=== PATIENT | female | born 1995 | race American Indian/Alaskan Native ===

== ENCOUNTER 2018-07-03 06:33 | Emergency (ER) | payer SELFPAY ==
--- NOTE | 2018-07-03 07:08 | Emergency Department Report ---
HPI - General Chief Complaint: Dental/Oral Time Seen by Provider: 07/03/18 07:05 - HPI HPI: This is a 23-year-old female here complaining of tooth abscess lower tooth on both sides. She said she spoke with dentist in [place] but they would not see her until swelling went down. She is reporting pain 10 out of 10 achy and worse with hot and and no alleviating factors. Patient says she has taken Motrin, Ultram and many other [id number] medication without any relief. Last menstrual cycle was 06/21/2018. Denies any fever or chills. Denies any nasal congestion. Denies any cough, sore throat or chest pain. ED Past Medical Hx - Past Medical History Previous Medical History?: Yes Additional medical history: endometerosis - Surgical History Past Surgical History?: No - Family History Family history: hypertension - Social History Smoking Status: Current Every Day Smoker Substance Use Type: None - Medications Home Medications: Home Medications Medication Instructions Recorded Confirmed Last Taken Type Acetaminophen/Codeine [Tylenol 1 tab PO Q6H PRN #14 tab 07/03/18 Unknown Rx /Codeine # 3 tab] Clindamycin [Clindamycin CAP] 300 mg PO Q8H 10 Days #30 cap 07/03/18 Unknown Rx Ibuprofen [Motrin] 600 mg PO Q8H PRN #15 tablet 07/03/18 Unknown Rx ED Review of Systems ROS: Stated complaint: TOOTHACHE Other details as noted in HPI Constitutional: denies: chills, fever Eyes: denies: eye pain, eye discharge, vision change ENT: dental pain. denies: ear pain, throat pain, congestion Respiratory: other (bilateral mandible swelling, minimal). denies: cough, shortness of breath, SOB with exertion, SOB at rest, stridor, wheezing Cardiovascular: denies: chest pain, palpitations Gastrointestinal: denies: nausea, vomiting Musculoskeletal: denies: back pain, joint swelling, arthralgia, myalgia Skin: denies: rash, lesions Neurological: denies: headache, weakness, paresthesias Physical Exam - Physical Exam Vital Signs: Vital Signs 07/03/18 06:56 Temperature 99.4 F Pulse Rate 98 H Respiratory 16 Rate Blood Pressure 116/85 O2 Sat by Pulse 100 Oximetry General: This is a 23-year-old female well-nourished well-developed in no acute distress. Physical Exam: Head: Normocephalic atraumatic Ears:BIateral TM pearly wolff . Luis Manuel EAC with normal exam. No mastoid bone tenderness. Mouth: Moist, no pharyngeal erythema or exudate . Tongue is normal and oral airways patent. Uvula is midline. No abscess noted but noted dental tenderness around tooth #17, 18 and 32. Multiple caries to #17, 18, 19 and 20 noted without any pulp exposure. Lip is normal. Minor swelling to bilateral mandible Neck: Nontender to palpate, supple, normal range of motion. No adenopathy. No c- spine tenderness. Nose: Bilateral nasal mucosa normal exam maxillary and frontal sinuses non- tender to palpate. Eyes: Bilateral Sclerae and conjunctiva without injection. Bilateral pupils equal and reactive to light. Bilateral lids are normal. Normal accommodation.BEOMI Lungs: Clear to auscultate bilaterally, no rhonchi wheezes or rales. Normal work of breathing and no chest wall tenderness CV: S1, S2. Regular rate and rhythm negative murmur. Capillary refill is less than 3 seconds Abdomen: Nontender to palpation in all quadrants: No guarding or rebound tenderness. Positive bowel sounds in all quadrants Extremity: No clubbing, cyanosis or edema. +2 pulses in all extremities and no neurovascular compromise Skin: Clean dry and intact, no rashes or lesions ED Course Vital Signs 07/03/18 06:56 Temperature 99.4 F Pulse Rate 98 H Respiratory 16 Rate Blood Pressure 116/85 O2 Sat by Pulse 100 Oximetry - Reevaluation(s) Reevaluation #1: 07/03/18 08:06 given clindamycin 600 mg by mouth and Percocet 5/325 one tablet, Motrin 800 mg for oral cellulitis and pain. ED Medical Decision Making - Medical Decision Making This is a 23-year-old female here report that she is having in bilateral lower dental pain and swelling and she went with dentist in [place] now close to where she works and they wanted her to be an antibiotic and pain medication before they see her 1: Oral cellulitis-patient started on clindamycin 600 mg by mouth and will be sent home on clindamycin and referred to dentist 2: Dental caries/toothache: Percocet 5/325 mg 1 tablet and Motrin 800 mg by mouth which helped her pain. She will be sent home on pain medication I discussed the patient diagnosis and treatment plan she was given referral to multiple dental clinic in the community to include [facility]. Patient does have access to dental care so she says she will call and schedule an appointment today for treatment of underlying problems causing her toothache and cellulitis. She was given pain medication in emergency room and started on antibiotic and her pain is better. Patient stable and in no acute distress. Discharge home with her family in stable condition with prescription for clindamycin, Tylenol No. 3 and Motrin Critical care attestation.: If time is entered above; I have spent that time in minutes in the direct care of this critically ill patient, excluding procedure time. ED Disposition Clinical Impression: Oral cellulitis, Toothache, Dental caries Disposition: - TO HOME OR SELFCARE Is pt being admited?: No Does the pt Need Aspirin: No Condition: Stable Instructions: Dental Caries (ED), Toothache (ED), Dental Abscess (ED) Additional Instructions: Please follow up with dentist as discussed. See alternative dentist and discharge instruction paperwork if needed. Take Motrin for mild to moderate pain and please take this medication with food. Take Tylenol No. 3 for severe pain and please do not drive or operate heavy machinery while taking this medication. Take clindamycin as prescribed. Please see floss twice daily Gargle Listerine mouthwash twice daily Referrals: [facility] [Outside] - 2-[address] [facility] [Outside] - 2-3 Days Forms: Work/School Release Form(ED)
[2018-07-03] MEDS ORDERED: MOTRIN PO ONE (07:37)
[2018-07-03] MEDS ORDERED: PERCOCET 5/325 PO ONE (07:37)
[2018-07-03] MEDS ORDERED: CLEOCIN PO ONE (07:37)
[2018-07-03 08:24] VITALS: BP 114/81
== END 2018-07-03 08:23 | disposition home or self-care (01) ==
LOC: ED 06:33
DX: K12.2 Cellulitis and abscess of mouth (principal); K02.9 Dental caries, unspecified; F17.200 Nicotine dependence, unspecified, uncomplicated
CPT/HCPCS: 99282

== ENCOUNTER 2018-07-22 07:32 | Emergency (ER) | payer SELFPAY ==
[2018-07-22] MEDS ORDERED: TYLENOL #3 PO ONE (08:06)
[2018-07-22] MEDS ORDERED: CLEOCIN PO ONE (08:06)
--- NOTE | 2018-07-22 08:10 | Emergency Department Report ---
ED ENT HPI - General Chief complaint: Dental/Oral Stated complaint: TOOTH ACHE Time Seen by Provider: 07/22/18 08:00 Source: patient Mode of arrival: Ambulatory Limitations: No Limitations - History of Present Illness Initial comments: This is a 23-year-old female nontoxic, well nourished in appearance, no acute signs of distress presents to the ED with c/o of right and left lower toothache 1 month. Patient denies following up with a dentist. Patient stated that pain radiates from his job to his left side of head. Patient otherwise denies any head trauma. Patient describes toothache as aching level of 8 out of 10. Patient stated has some slight swelling to right lower mandible area. Patient denies any numbness, tingling, fever, chills, headache, stiff neck, abdominal pain, chest pain, shortness of breath. Patient denies any drug allergies or significant past medical history. MD complaint: tooth pain -: month(s) (1) Location: tooth # 1 - pain here 2 - pain here Severity: mild Severity scale (0 -10): 8 Quality: aching Consistency: constant Improves with: none Worsens with: none Context- Dental: history of dental caries, poor dental care Associated Symptoms: gum swelling, toothache. denies: fever, cough, pain with swallowing, sore throat, tinnitus, hearing loss, discharge from ear, rhinorrhea - Related Data Previous Rx's Medication Instructions Recorded Last Taken Type Acetaminophen/Codeine [Tylenol 1 tab PO Q6H PRN #14 tab 07/03/18 Unknown Rx /Codeine # 3 tab] Clindamycin [Clindamycin CAP] 300 mg PO Q8H 10 Days #30 cap 07/03/18 Unknown Rx Ibuprofen [Motrin] 600 mg PO Q8H PRN #15 tablet 07/03/18 Unknown Rx Acetaminophen/Codeine [Tylenol 1 tab PO Q6H PRN #12 tab 07/22/18 Unknown Rx /Codeine # 3 tab] Chlorhexidine Mouthwash [Peridex] 15 ml MM BID #1 bottle 07/22/18 Unknown Rx Clindamycin [Clindamycin CAP] 300 mg PO Q8H #21 cap 07/22/18 Unknown Rx Ibuprofen [Motrin] 600 mg PO Q8H PRN #20 tablet 07/22/18 Unknown Rx Allergies Allergy/AdvReac Type Severity Reaction Status Date / Time antidiarrhea Allergy Vomiting Uncoded 07/22/18 07:46 ED Dental HPI - General Chief complaint: Dental/Oral Stated complaint: TOOTH ACHE Time Seen by Provider: 07/22/18 08:00 Source: patient Mode of arrival: Ambulatory Limitations: No Limitations - Related Data Previous Rx's Medication Instructions Recorded Last Taken Type Acetaminophen/Codeine [Tylenol 1 tab PO Q6H PRN #14 tab 07/03/18 Unknown Rx /Codeine # 3 tab] Clindamycin [Clindamycin CAP] 300 mg PO Q8H 10 Days #30 cap 07/03/18 Unknown Rx Ibuprofen [Motrin] 600 mg PO Q8H PRN #15 tablet 07/03/18 Unknown Rx Acetaminophen/Codeine [Tylenol 1 tab PO Q6H PRN #12 tab 07/22/18 Unknown Rx /Codeine # 3 tab] Chlorhexidine Mouthwash [Peridex] 15 ml MM BID #1 bottle 07/22/18 Unknown Rx Clindamycin [Clindamycin CAP] 300 mg PO Q8H #21 cap 07/22/18 Unknown Rx Ibuprofen [Motrin] 600 mg PO Q8H PRN #20 tablet 07/22/18 Unknown Rx Allergies Allergy/AdvReac Type Severity Reaction Status Date / Time antidiarrhea Allergy Vomiting Uncoded 07/22/18 07:46 ED Review of Systems ROS: Stated complaint: TOOTH ACHE Other details as noted in HPI Constitutional: denies: chills, fever Eyes: denies: eye pain, eye discharge, vision change ENT: dental pain. denies: ear pain, throat pain Respiratory: denies: cough, shortness of breath, wheezing Cardiovascular: denies: chest pain, palpitations Endocrine: no symptoms reported Gastrointestinal: denies: abdominal pain, nausea, diarrhea Genitourinary: denies: urgency, dysuria, discharge Musculoskeletal: denies: back pain, joint swelling, arthralgia Skin: denies: rash, lesions Neurological: denies: headache, weakness, paresthesias Psychiatric: denies: anxiety, depression Hematological/Lymphatic: denies: easy bleeding, easy bruising ED Past Medical Hx - Past Medical History Previous Medical History?: Yes Additional medical history: endometerosis - Surgical History Past Surgical History?: No - Social History Smoking Status: Current Every Day Smoker Substance Use Type: None - Medications Home Medications: Home Medications Medication Instructions Recorded Confirmed Last Taken Type Acetaminophen/Codeine [Tylenol 1 tab PO Q6H PRN #14 tab 07/03/18 Unknown Rx /Codeine # 3 tab] Clindamycin [Clindamycin CAP] 300 mg PO Q8H 10 Days #30 cap 07/03/18 Unknown Rx Ibuprofen [Motrin] 600 mg PO Q8H PRN #15 tablet 07/03/18 Unknown Rx Acetaminophen/Codeine [Tylenol 1 tab PO Q6H PRN #12 tab 07/22/18 Unknown Rx /Codeine # 3 tab] Chlorhexidine Mouthwash [Peridex] 15 ml MM BID #1 bottle 07/22/18 Unknown Rx Clindamycin [Clindamycin CAP] 300 mg PO Q8H #21 cap 07/22/18 Unknown Rx Ibuprofen [Motrin] 600 mg PO Q8H PRN #20 tablet 07/22/18 Unknown Rx ED Physical Exam - General Limitations: No Limitations General appearance: alert, in no apparent distress - Head Head exam: Present: atraumatic, normocephalic - Eye Eye exam: Present: normal appearance Pupils: Present: normal accommodation - ENT ENT exam: Present: mucous membranes moist, TM's normal bilaterally - Expanded ENT Exam Expanded Ear exam: Present: normal external inspection Mouth exam: Present: normal external inspection, tongue normal. Absent: drooling, trismus, muffled voice Teeth exam: Present: dental caries, fractured tooth #, dental tenderness #, gingival enlargement, other (slight right lower mandible swelling with no induration or flutance noted) Throat exam: Positive: other (Uvula midline. No abscess noted.). Negative: tonsillar erythema, tonsillomegaly, tonsillar exudate, R peritonsillar mass, L peritonsillar mass - Neck Neck exam: Present: normal inspection, full ROM. Absent: tenderness, meningismus, lymphadenopathy - Respiratory Respiratory exam: Present: normal lung sounds bilaterally. Absent: respiratory distress - Cardiovascular Cardiovascular Exam: Present: regular rate, normal rhythm. Absent: systolic murmur, diastolic murmur, rubs, gallop - GI/Abdominal GI/Abdominal exam: Present: soft, normal bowel sounds - Extremities Exam Extremities exam: Present: normal inspection - Back Exam Back exam: Present: normal inspection - Neurological Exam Neurological exam: Present: alert, oriented X3 - Psychiatric Psychiatric exam: Present: normal affect, normal mood - Skin Skin exam: Present: warm, dry, intact, normal color. Absent: rash ED Course Vital Signs 07/22/18 07:46 Temperature 99.1 F Pulse Rate 99 H Respiratory 16 Rate Blood Pressure 108/78 - Reevaluation(s) Reevaluation #1: 07/22/18 08:10 Patient is speaking in full sentences with no signs of distress noted. ED Medical Decision Making - Medical Decision Making This is a 23-year-old female that presents with gingivitis and dental caries. Patient is stable and was examined by me. There is slight swelling to the right lower mandible. No induration of flutnace noted. No abscess formation noted. I did give patient clindamycin 600 mg PO to start patient on antibiotics in the ED and patient is discharged with clindamycin. Patient also received Tylenol with Codeine and stated that her brother will drive the patient home after discharge due to possible drowsiness. Patient had strict instructions to follow-up with oral maxillary surgeon in 24 hours or if symptoms would worsen to return to emergency room as was possible. Patient is discharged with Ultram , Peridex and Clinda. Patient was instructed not to operate any machinery when taking Ultram due to drowsiness. At time of discharge, the patient does not seem toxic or ill in appearance. No acute signs of distress noted. Patient agrees to discharge treatment plan of care. No further questions noted by the patient. Critical care attestation.: If time is entered above; I have spent that time in minutes in the direct care of this critically ill patient, excluding procedure time. ED Disposition Clinical Impression: Dental caries, Gingivitis Disposition: DC- TO HOME OR SELFCARE Is pt being admited?: No Does the pt Need Aspirin: No Condition: Stable Instructions: Dental Caries (ED), Gingivitis (ED), Acetaminophen/Codeine (By mouth) Additional Instructions: Follow-up with oral maxillary surgeon in 24 hours or if symptoms would worsen to return to emergency room as was possible. Do not operate any machinery while taking Tylenol with codeine as this may cause drowsiness. [facility] [employer] Address: [id number], [place] [address] Hours: Monday Closed Monday 8AM1PM, 25PM Monday 8AM1PM, 25PM Monday 8AM1PM, 25PM 8AM1PM, 25Monday 7APM Monday Closed Prescriptions: Acetaminophen/Codeine [Tylenol /Codeine # 3 tab] 1 tab PO Q6H PRN #12 tab PRN Reason: Pain , Severe (7-10) Chlorhexidine Mouthwash [Peridex] 15 ml MM BID #1 bottle Clindamycin [Clindamycin CAP] 300 mg PO Q8H #21 cap Ibuprofen [Motrin] 600 mg PO Q8H PRN #20 tablet PRN Reason: Pain Referrals: PRIMARY CAREMD [Primary Care Provider] - 3-5 Days CAROL DELGADO MD [Staff Physician] - 3-5 Days [facility] [Outside] - 3-5 Days [facility] [Outside] - 3-5 Days Forms: Work/School Release Form(ED)
[2018-07-22 08:30] VITALS: BP 110/78
== END 2018-07-22 08:30 | disposition home or self-care (01) ==
LOC: ED 07:32
DX: K02.9 Dental caries, unspecified (principal); K05.00 Acute gingivitis, plaque induced; Z88.6 Allergy status to analgesic agent
CPT/HCPCS: 99282

== ENCOUNTER 2018-10-15 17:53 | Emergency (ER) | payer SELFPAY ==
[2018-10-15 18:11] VITALS: BP 109/70
[2018-10-15] MEDS ORDERED: NORCO 5/325 PO STA (22:00)
--- NOTE | 2018-10-15 22:05 | Emergency Department Report ---
ED ENT HPI - General Chief complaint: Dental/Oral Stated complaint: TOOTH PAIN Time Seen by Provider: 10/15/18 22:00 Source: patient Mode of arrival: Ambulatory Limitations: No Limitations - History of Present Illness Initial comments: has appointment with dentist on October 18 but needs medication to get the swelling down MD complaint: tooth pain -: Sudden, month(s), unknown (chronic recurrent dental pain) Location: tooth # (right lower molar region. pain and swelling. ) Severity: moderate, severe Quality: stabbing, aching, dull Consistency: constant Improves with: none Worsens with: eating Context- Dental: history of dental caries, poor dental care Associated Symptoms: toothache. denies: gum swelling, sore throat, tinnitus, discharge from ear, rhinorrhea - Related Data Previous Rx's Medication Instructions Recorded Last Taken Type Acetaminophen/Codeine [Tylenol 1 tab PO Q6H PRN #14 tab 07/03/18 Unknown Rx /Codeine # 3 tab] Clindamycin [Clindamycin CAP] 300 mg PO Q8H 10 Days #30 cap 07/03/18 Unknown Rx Ibuprofen [Motrin] 600 mg PO Q8H PRN #15 tablet 07/03/18 Unknown Rx Acetaminophen/Codeine [Tylenol 1 tab PO Q6H PRN #12 tab 07/22/18 Unknown Rx /Codeine # 3 tab] Chlorhexidine Mouthwash [Peridex] 15 ml MM BID #1 bottle 07/22/18 Unknown Rx Clindamycin [Clindamycin CAP] 300 mg PO Q8H #21 cap 07/22/18 Unknown Rx Ibuprofen [Motrin] 600 mg PO Q8H PRN #20 tablet 07/22/18 Unknown Rx Amoxicillin 500 mg PO QID #40 capsule 10/15/18 Unknown Rx Chlorhexidine Mouthwash [Peridex] 15 ml MM BID #473 bottle 10/15/18 Unknown Rx Ketorolac [Toradol] 10 mg PO Q6H PRN #15 tablet 10/15/18 Unknown Rx Lidocaine Viscous 2% 5 ml MM Q3H PRN #120 udc 10/15/18 Unknown Rx Allergies Allergy/AdvReac Type Severity Reaction Status Date / Time antidiarrhea Allergy Vomiting Uncoded 07/22/18 07:46 ED Dental HPI - General Chief complaint: Dental/Oral Stated complaint: TOOTH PAIN Time Seen by Provider: 10/15/18 22:00 Source: patient Mode of arrival: Ambulatory Limitations: No Limitations - Related Data Previous Rx's Medication Instructions Recorded Last Taken Type Acetaminophen/Codeine [Tylenol 1 tab PO Q6H PRN #14 tab 07/03/18 Unknown Rx /Codeine # 3 tab] Clindamycin [Clindamycin CAP] 300 mg PO Q8H 10 Days #30 cap 07/03/18 Unknown Rx Ibuprofen [Motrin] 600 mg PO Q8H PRN #15 tablet 07/03/18 Unknown Rx Acetaminophen/Codeine [Tylenol 1 tab PO Q6H PRN #12 tab 07/22/18 Unknown Rx /Codeine # 3 tab] Chlorhexidine Mouthwash [Peridex] 15 ml MM BID #1 bottle 07/22/18 Unknown Rx Clindamycin [Clindamycin CAP] 300 mg PO Q8H #21 cap 07/22/18 Unknown Rx Ibuprofen [Motrin] 600 mg PO Q8H PRN #20 tablet 07/22/18 Unknown Rx Amoxicillin 500 mg PO QID #40 capsule 10/15/18 Unknown Rx Chlorhexidine Mouthwash [Peridex] 15 ml MM BID #473 bottle 10/15/18 Unknown Rx Ketorolac [Toradol] 10 mg PO Q6H PRN #15 tablet 10/15/18 Unknown Rx Lidocaine Viscous 2% 5 ml MM Q3H PRN #120 udc 10/15/18 Unknown Rx Allergies Allergy/AdvReac Type Severity Reaction Status Date / Time antidiarrhea Allergy Vomiting Uncoded 07/22/18 07:46 ED Review of Systems ROS: Stated complaint: TOOTH PAIN Other details as noted in HPI Constitutional: denies: chills, fever Eyes: denies: eye pain, eye discharge, vision change ENT: dental pain. denies: ear pain, throat pain Respiratory: denies: cough, shortness of breath, wheezing Cardiovascular: denies: chest pain, palpitations Endocrine: no symptoms reported Gastrointestinal: denies: abdominal pain, nausea, diarrhea Genitourinary: denies: urgency, dysuria, discharge Musculoskeletal: denies: back pain, joint swelling, arthralgia Skin: denies: rash, lesions Neurological: denies: headache, weakness, paresthesias Psychiatric: denies: anxiety, depression Hematological/Lymphatic: denies: easy bleeding, easy bruising ED Past Medical Hx - Past Medical History Previous Medical History?: Yes Additional medical history: endometerosis - Social History Smoking Status: Current Every Day Smoker Substance Use Type: Alcohol - Medications Home Medications: Home Medications Medication Instructions Recorded Confirmed Last Taken Type Acetaminophen/Codeine [Tylenol 1 tab PO Q6H PRN #14 tab 07/03/18 Unknown Rx /Codeine # 3 tab] Clindamycin [Clindamycin CAP] 300 mg PO Q8H 10 Days #30 cap 07/03/18 Unknown Rx Ibuprofen [Motrin] 600 mg PO Q8H PRN #15 tablet 07/03/18 Unknown Rx Acetaminophen/Codeine [Tylenol 1 tab PO Q6H PRN #12 tab 07/22/18 Unknown Rx /Codeine # 3 tab] Chlorhexidine Mouthwash [Peridex] 15 ml MM BID #1 bottle 07/22/18 Unknown Rx Clindamycin [Clindamycin CAP] 300 mg PO Q8H #21 cap 07/22/18 Unknown Rx Ibuprofen [Motrin] 600 mg PO Q8H PRN #20 tablet 07/22/18 Unknown Rx Amoxicillin 500 mg PO QID #40 capsule 10/15/18 Unknown Rx Chlorhexidine Mouthwash [Peridex] 15 ml MM BID #473 bottle 10/15/18 Unknown Rx Ketorolac [Toradol] 10 mg PO Q6H PRN #15 tablet 10/15/18 Unknown Rx Lidocaine Viscous 2% 5 ml MM Q3H PRN #120 udc 10/15/18 Unknown Rx ED Physical Exam - General Limitations: No Limitations General appearance: alert, in no apparent distress - Head Head exam: Present: atraumatic, normocephalic - Eye Eye exam: Present: normal appearance, PERRL, EOMI Pupils: Present: normal accommodation - ENT ENT exam: Present: mucous membranes moist, TM's normal bilaterally, other (several dental caries wtih sever erosion to tooth 32. adjacent swelling to tooth 29-30. Airway patent. ) - Neck Neck exam: Present: normal inspection, full ROM. Absent: lymphadenopathy - Respiratory Respiratory exam: Present: normal lung sounds bilaterally. Absent: respiratory distress, wheezes, rales - Cardiovascular Cardiovascular Exam: Present: regular rate, normal rhythm. Absent: systolic murmur, diastolic murmur, rubs, gallop - GI/Abdominal GI/Abdominal exam: Present: soft, normal bowel sounds. Absent: tenderness, guarding, organomegaly, mass, bruit - Extremities Exam Extremities exam: Present: normal inspection - Back Exam Back exam: Present: normal inspection, full ROM - Neurological Exam Neurological exam: Present: alert, oriented X3, CN II-XII intact - Psychiatric Psychiatric exam: Present: normal affect, normal mood. Absent: flat affect, manic - Skin Skin exam: Present: warm, dry, intact, normal color. Absent: rash ED Course Vital Signs 10/15/18 18:09 Temperature 99 F Pulse Rate 107 H Respiratory 18 Rate Blood Pressure 109/70 O2 Sat by Pulse 100 Oximetry Critical care attestation.: If time is entered above; I have spent that time in minutes in the direct care of this critically ill patient, excluding procedure time. ED Disposition Clinical Impression: Dentalgia, Tooth infection Disposition: - TO HOME OR SELFCARE Is pt being admited?: No Does the pt Need Aspirin: No Condition: Stable Instructions: Dental Caries (ED), Dental Abscess (ED), Toothache (ED) Referrals: PRIMARY CARE, [Primary Care Provider] - 3-5 Days [facility] [Outside] - 3-5 Days
== END 2018-10-15 22:30 | disposition home or self-care (01) ==
LOC: ED 17:53
DX: K04.7 Periapical abscess without sinus (principal); F17.200 Nicotine dependence, unspecified, uncomplicated; Z88.8 Allergy status to other drugs, medicaments and biological substances
CPT/HCPCS: 99282

== ENCOUNTER 2019-06-18 05:51 | Emergency (ER) | payer SELFPAY ==
[2019-06-18 06:12] VITALS: BP 112/83
--- NOTE | 2019-06-18 08:00 | Emergency Department Report ---
HPI - General Chief Complaint: Dental/Oral Time Seen by Provider: 06/18/19 07:55 - HPI HPI: 24 yo comes to ER with dental pain . no fever or chills. ambulatory. taking po. Has been to [facility] but can not afford extraction. OTC meds not helping at home. Pain constant and throbbing. ED Past Medical Hx - Past Medical History Previous Medical History?: Yes Additional medical history: endometerosis - Surgical History Past Surgical History?: No - Family History Family history: no significant - Social History Smoking Status: Never Smoker - Medications Home Medications: Home Medications Medication Instructions Recorded Confirmed Last Taken Type Acetaminophen/Codeine [Tylenol 1 tab PO Q6H PRN #14 tab 07/03/18 Unknown Rx /Codeine # 3 tab] Clindamycin [Clindamycin CAP] 300 mg PO Q8H 10 Days #30 cap 07/03/18 Unknown Rx Ibuprofen [Motrin] 600 mg PO Q8H PRN #15 tablet 07/03/18 Unknown Rx Acetaminophen/Codeine [Tylenol 1 tab PO Q6H PRN #12 tab 07/22/18 Unknown Rx /Codeine # 3 tab] Chlorhexidine Mouthwash [Peridex] 15 ml MM BID #1 bottle 07/22/18 Unknown Rx Clindamycin [Clindamycin CAP] 300 mg PO Q8H #21 cap 07/22/18 Unknown Rx Ibuprofen [Motrin] 600 mg PO Q8H PRN #20 tablet 07/22/18 Unknown Rx Amoxicillin 500 mg PO QID #40 capsule 10/15/18 Unknown Rx Chlorhexidine Mouthwash [Peridex] 15 ml MM BID #473 bottle 10/15/18 Unknown Rx Ketorolac [Toradol] 10 mg PO Q6H PRN #15 tablet 10/15/18 Unknown Rx Lidocaine Viscous 2% 5 ml MM Q3H PRN #120 udc 10/15/18 Unknown Rx Amoxicillin 500 mg PO BID #14 capsule 01/19/19 Unknown Rx HYDROcodone/APAP 5-325 [[place] 1 - 2 each PO Q6HR PRN #14 tablet 01/19/19 Unknown Rx 5/325] Ibuprofen [Motrin 800 MG tab] 800 mg PO Q8HR PRN #20 tablet 01/19/19 Unknown Rx Amoxicillin [Trimox CAP] 500 mg PO TID #30 capsule 06/18/19 Unknown Rx Ibuprofen [Motrin] 800 mg PO Q8HR PRN #30 tablet 06/18/19 Unknown Rx ED Review of Systems ROS: Stated complaint: SEVERE TOOTH PAIN Other details as noted in HPI Comment: All other systems reviewed and negative Physical Exam - Physical Exam Vital Signs: Vital Signs 06/18/19 06:09 Temperature 98.3 F Pulse Rate 96 H Respiratory 18 Rate Blood Pressure 112/83 O2 Sat by Pulse 100 Oximetry Physical Exam: alert and oriented dental pain no abscess no ludwigs no trismus controlling secretions abc intact vss s1 s2 lungs cta ED Course Vital Signs 06/18/19 06:09 Temperature 98.3 F Pulse Rate 96 H Respiratory 18 Rate Blood Pressure 112/83 O2 Sat by Pulse 100 Oximetry ED Medical Decision Making - Medical Decision Making pt educated on dental care. given list of dental clinics medicated in ER with bicillin, motrin and toradol dc home with discharge plan of care Vital Signs (72 hours) 06/18/19 06:09 Temperature 98.3 F Pulse Rate 96 H Respiratory 18 Rate Blood Pressure 112/83 O2 Sat by Pulse 100 Oximetry - Differential Diagnosis simple dental Critical care attestation.: If time is entered above; I have spent that time in minutes in the direct care of this critically ill patient, excluding procedure time. ED Disposition Clinical Impression: Pain, dental Disposition: DC-01 TO HOME OR SELFCARE Is pt being admited?: No Does the pt Need Aspirin: No Condition: Stable Additional Instructions: see dentist tejal hydrate well tylenol can be used for pain as well Referrals: [facility] [Outside[facility] - 3-5 Days [facility] [Outside] - 3-5 Days Time of Disposition: 08:16
[2019-06-18] MEDS ORDERED: BICILLIN L-A IM ONE (08:11)
[2019-06-18] MEDS ORDERED: IBUPROFEN PO ONE (08:11)
[2019-06-18] MEDS ORDERED: TORADOL IM ONE (08:11)
== END 2019-06-18 08:56 | disposition home or self-care (01) ==
LOC: ED 05:51
DX: K08.89 Other specified disorders of teeth and supporting structures (principal); Z79.899 Other long term (current) drug therapy; Z98.890 Other specified postprocedural states; Z88.8 Allergy status to other drugs, medicaments and biological substances
CPT/HCPCS: 96372; 99282; J0561; J1885

== ENCOUNTER 2019-10-29 13:23 | Emergency (ER) | payer SELFPAY ==
--- NOTE | 2019-10-29 14:21 | Event Note ---
ED Screening Note Date of service: 10/29/19 Time: 14:17 ED Screening Note: 24 y o female presents with abnormal vaginal bleed and pelvic pain x 3 days This initial assessment/diagnostic orders/clinical plan/treatment(s) is/are subject to change based on patients health status, clinical progression and re- assessment by fellow clinical providers in the ED. Further treatment and workup at subsequent clinical providers discretion. Patient/guardian urged not to elope from the ED as their condition may be serious if not clinically assessed and managed. Initial orders include: labs, ua ordered acc eval
[2019-10-29 15:15] LABS: Basophils % (Auto) 0.5 % (0.0-1.8); Eosinophils # (Auto) 0.1 K/mm3 (0.0-0.4); Eosinophils % (Auto) 1.9 % (0.0-4.3); Hematocrit 35.4 % (30.3-42.9); Hemoglobin 12.2 gm/dl (10.1-14.3); Lymphocytes # (Auto) 2.4 K/mm3 (1.2-5.4); Lymphocytes % (Auto) 47.1 % (13.4-35.0); Mean Corpuscular HGB Conc 34 % (30-34); Mean Corpuscular Volume 97 fl (79-97); Monocytes # (Auto) 0.4 K/mm3 (0.0-0.8); Monocytes % (Auto) 7.2 % (0.0-7.3); Platelet Count 206 K/mm3 (140-440); Red Blood Count 3.65 M/mm3 (3.65-5.03); Red Cell Distribution Width 13.2 % (13.2-15.2)
[2019-10-29 17:10] LABS: Bilirubin,Urine NEG (Negative); Blood,Urine LG (Negative); Color,Urine Yellow (Yellow); Mucus,Urine 3+ /HPF; Urobilinogen,Urine < 2.0 mg/dL (<2.0)
[2019-10-29 17:12] LABS: RBC,Urine > 182.0 /HPF (0.0-6.0)
--- NOTE | 2019-10-29 18:11 | Emergency Department Report ---
ED Female HPI - General Chief complaint: Vaginal Bleeding Stated complaint: LOWER ABD PAIN Time Seen by Provider: 10/29/19 16:46 Source: patient Mode of arrival: Ambulatory Limitations: No Limitations - History of Present Illness Initial comments: This is a 24-year-old -Nepalese female who presents to the emergency room with diffuse abdominal pain and heavy vaginal bleeding that started yesterday. Patient states her period started yesterday with associated symptoms. But she reports a menstrual period on 10/02/2018 for 8 days. She does report a history of endometriosis. Patient states she recently moved here from [place] and does not have an [facility] to follow-up with. She denies urinary frequency, urgency, dysuria, vaginal discharge, or back pain. MD Complaint: vaginal bleeding Onset/Timin -: days(s) Location: suprapubic Radiation: non-radiating Severity: moderate Severity scale (0 -10): 10 Quality: cramping Consistency: constant Improves with: none Worsens with: menstrual period Are you Now?: No Last Menstrual Period: 10/28/19 EDC: 08/03/20 Associated Symptoms: vaginal bleeding, abdominal pain. denies: vaginal discharge, nausea/vomiting, fever/chills, headaches, dysuria, hematuria, seizure, shortness of breath, syncope, weakness - Related Data Previous Rx's Medication Instructions Recorded Last Taken Type Acetaminophen/Codeine [Tylenol 1 tab PO Q6H PRN #14 tab 07/03/18 Unknown Rx /Codeine # 3 tab] Clindamycin [Clindamycin CAP] 300 mg PO Q8H 10 Days #30 cap 07/03/18 Unknown Rx Ibuprofen [Motrin] 600 mg PO Q8H PRN #15 tablet 07/03/18 Unknown Rx Acetaminophen/Codeine [Tylenol 1 tab PO Q6H PRN #12 tab 07/22/18 Unknown Rx /Codeine # 3 tab] Chlorhexidine Mouthwash [Peridex] 15 ml MM BID #1 bottle 07/22/18 Unknown Rx Clindamycin [Clindamycin CAP] 300 mg PO Q8H #21 cap 07/22/18 Unknown Rx Ibuprofen [Motrin] 600 mg PO Q8H PRN #20 tablet 07/22/18 Unknown Rx Amoxicillin 500 mg PO QID #40 capsule 10/15/18 Unknown Rx Chlorhexidine Mouthwash [Peridex] 15 ml MM BID #473 bottle 10/15/18 Unknown Rx Ketorolac [Toradol] 10 mg PO Q6H PRN #15 tablet 10/15/18 Unknown Rx Lidocaine Viscous 2% 5 ml MM Q3H PRN #120 udc 10/15/18 Unknown Rx Amoxicillin 500 mg PO BID #14 capsule 01/19/19 Unknown Rx HYDROcodone/APAP 5-325 [[place] 1 - 2 each PO Q6HR PRN #14 tablet 01/19/19 Unknown Rx 5/325] Ibuprofen [Motrin 800 MG tab] 800 mg PO Q8HR PRN #20 tablet 01/19/19 Unknown Rx Amoxicillin [Trimox CAP] 500 mg PO TID #30 capsule 06/18/19 Unknown Rx Ibuprofen [Motrin] 800 mg PO Q8HR PRN #30 tablet 06/18/19 Unknown Rx medroxyPROGESTERone ACETATE 10 mg PO QDAY #10 tablet 10/29/19 Unknown Rx [Provera] Allergies Allergy/AdvReac Type Severity Reaction Status Date / Time antidiarrhea Allergy Vomiting Uncoded 01/19/19 09:57 ED Review of Systems ROS: Stated complaint: LOWER ABD PAIN Other details as noted in HPI Constitutional: denies: chills, fever Respiratory: denies: cough, shortness of breath, wheezing Cardiovascular: denies: chest pain, palpitations Gastrointestinal: abdominal pain. denies: nausea, diarrhea Genitourinary: abnormal menses, dyspareunia. denies: urgency, dysuria, discharge Musculoskeletal: denies: back pain, joint swelling, arthralgia Skin: denies: rash, lesions Neurological: denies: headache, weakness, paresthesias Psychiatric: denies: anxiety, depression ED Past Medical Hx - Past Medical History Additional medical history: endometerosis - Surgical History Past Surgical History?: No - Social History Smoking Status: Current Some Day Smoker Substance Use Type: Alcohol - Medications Home Medications: Home Medications Medication Instructions Recorded Confirmed Last Taken Type Acetaminophen/Codeine [Tylenol 1 tab PO Q6H PRN #14 tab 07/03/18 Unknown Rx /Codeine # 3 tab] Clindamycin [Clindamycin CAP] 300 mg PO Q8H 10 Days #30 cap 07/03/18 Unknown Rx Ibuprofen [Motrin] 600 mg PO Q8H PRN #15 tablet 07/03/18 Unknown Rx Acetaminophen/Codeine [Tylenol 1 tab PO Q6H PRN #12 tab 07/22/18 Unknown Rx /Codeine # 3 tab] Chlorhexidine Mouthwash [Peridex] 15 ml MM BID #1 bottle 07/22/18 Unknown Rx Clindamycin [Clindamycin CAP] 300 mg PO Q8H #21 cap 07/22/18 Unknown Rx Ibuprofen [Motrin] 600 mg PO Q8H PRN #20 tablet 07/22/18 Unknown Rx Amoxicillin 500 mg PO QID #40 capsule 10/15/18 Unknown Rx Chlorhexidine Mouthwash [Peridex] 15 ml MM BID #473 bottle 10/15/18 Unknown Rx Ketorolac [Toradol] 10 mg PO Q6H PRN #15 tablet 10/15/18 Unknown Rx Lidocaine Viscous 2% 5 ml MM Q3H PRN #120 udc 10/15/18 Unknown Rx Amoxicillin 500 mg PO BID #14 capsule 01/19/19 Unknown Rx HYDROcodone/APAP 5-325 [[place] 1 - 2 each PO Q6HR PRN #14 tablet 01/19/19 Unknown Rx 5/325] Ibuprofen [Motrin 800 MG tab] 800 mg PO Q8HR PRN #20 tablet 01/19/19 Unknown Rx Amoxicillin [Trimox CAP] 500 mg PO TID #30 capsule 06/18/19 Unknown Rx Ibuprofen [Motrin] 800 mg PO Q8HR PRN #30 tablet 06/18/19 Unknown Rx medroxyPROGESTERone ACETATE 10 mg PO QDAY #10 tablet 10/29/19 Unknown Rx [Provera] ED Physical Exam - General Limitations: No Limitations General appearance: alert, in no apparent distress - Respiratory Respiratory exam: Present: normal lung sounds bilaterally. Absent: respiratory distress - Cardiovascular Cardiovascular Exam: Present: regular rate, normal rhythm. Absent: systolic murmur, diastolic murmur, rubs, gallop - GI/Abdominal GI/Abdominal exam: Present: soft, normal bowel sounds. Absent: distended, tenderness, guarding, rebound, rigid - Back Exam Back exam: Absent: CVA tenderness (R), CVA tenderness (L) - Neurological Exam Neurological exam: Present: alert, oriented X3, normal gait - Psychiatric Psychiatric exam: Present: normal affect, normal mood - Skin Skin exam: Present: warm, dry, intact, normal color. Absent: rash ED Course Vital Signs 10/29/19 13:38 Temperature 98.1 F Pulse Rate 67 Respiratory 16 Rate Blood Pressure 117/88 O2 Sat by Pulse 100 Oximetry ED Medical Decision Making - Lab Data Result diagrams: 10/29/19 14:51 Lab Results 10/29/19 10/29/19 10/29/19 Range/Units 14:51 14:51 Unknown WBC 5.1 (4.5-11.0) K/mm3 RBC 3.65 (3.65-5.03) M/mm3 Hgb 12.2 (10.1-14.3) gm/dl Hct 35.4 (30.3-42.9) % MCV 97 (79-97) fl MCH 33 H (28-32) pg MCHC 34 (30-34) % RDW 13.2 (13.2-15.2) % Plt Count 206 (140-440) K/mm3 Lymph % (Auto) 47.1 H (13.4-35.0) % [place] % (Auto) 7.2 (0.0-7.3) % Eos % (Auto) 1.9 (0.0-4.3) % Baso % (Auto) 0.5 (0.0-1.8) % Lymph # 2.4 (1.2-5.4) K/mm3 [place] # 0.4 (0.0-0.8) K/mm3 Eos # 0.1 (0.0-0.4) K/mm3 Baso # 0.0 (0.0-0.1) K/mm3 Seg Neutrophils % 43.3 (40.0-70.0) % Seg Neutrophils # 2.2 (1.8-7.7) K/mm3 HCG, Qual Negative (Negative) Urine Color Yellow (Yellow) Urine Turbidity Slightly-cloudy (Clear) Urine pH 6.0 (5.0-7.0) Ur Specific [place] 1.028 (1.003-1.030) Urine Protein 30 mg/dl (Negative) mg/dL Urine Glucose (UA) Neg (Negative) mg/dL Urine Ketones Neg (Negative) mg/dL Urine Blood Lg (Negative) Urine Nitrite Neg (Negative) Urine Bilirubin Neg (Negative) Urine Urobilinogen < 2.0 (<2.0) mg/dL Ur Leukocyte Esterase Neg (Negative) Urine WBC (Auto) 5.0 (0.0-6.0) /HPF Urine RBC (Auto) > 182.0 (0.0-6.0) /HPF U Epithel Cells (Auto) 2.0 (0-13.0) /HPF Urine Mucus 3+ /HPF - Medical Decision Making This is a 24-year-old female who presents with dysmenorrhea for 1 day. Past medical history of endometriosis and fibroids. Patient admits to no [facility] follow-up. Vitals are stable inpatient in no acute distress. Labs were obtained and all unremarkable. Abdomen nontender on exam. Due to exam and history I have a low suspicion of torsion. Reviewed results with patient. Dysfunctional uterine bleeding. Start short course of control. Referral to [facility] for continued care. Discharge home with prompt outpatient PCP follow up; return precautions discussed. Critical care attestation.: If time is entered above; I have spent that time in minutes in the direct care of this critically ill patient, excluding procedure time. ED Disposition Clinical Impression: Dysmenorrhea, Dysfunctional uterine bleeding Menorrhagia Qualifiers: Menorrahagia type: with irregular cycle Qualified Code(s): N92.1 - Excessive and frequent menstruation with irregular cycle Disposition: TO HOME OR SELFCARE Is pt being admited?: No Condition: Stable Instructions: Dysfunctional Uterine Bleeding (ED) Additional Instructions: Take Provera control pills once a day for 5-10 days or until bleeding stops. Follow up with an [facility] from the list provided below. Return to the emergency room if worsening symptoms. Prescriptions: medroxyPROGESTERone ACETATE [Provera] 10 mg PO QDAY #10 tablet Referrals: [facility] [Provider Group] - 3-5 Days [facility] [Provider Group] - 3-5 Days [facility] [Provider Group] - 3-5 Days [facility]Other[facility] - 3-5 Days Forms: Work/School Release Form(ED) Time of Disposition: 18:19
[2019-10-29 18:33] VITALS: BP 116/80
== END 2019-10-29 18:32 | disposition home or self-care (01) ==
LOC: ED 13:23
DX: N94.6 Dysmenorrhea, unspecified (principal); N92.0 Excessive and frequent menstruation with regular cycle; F17.200 Nicotine dependence, unspecified, uncomplicated; Z79.899 Other long term (current) drug therapy; Z88.8 Allergy status to other drugs, medicaments and biological substances
CPT/HCPCS: 36415; 81001; 84703; 85025

== ENCOUNTER 2019-11-11 12:55 | Emergency (ER) | payer SELFPAY ==
[2019-11-11 14:24] VITALS: BP 120/70
--- NOTE | 2019-11-11 14:27 | Emergency Department Report ---
Upper Respiratory HPI - HPI Chief Complaint: Sore Throat Stated Complaint: SOB,SORETHROAT Time Seen by Provider: 11/11/19 14:20 Duration: 3 Days URI Symptoms: Rhinorrhea: Yes, Sore Throat: No, Ear Pain: No, Cough: Yes, Sh ortness of Breath: No, Sick Contacts: No, Unable to Take Fluids: No, Urine Output Abnormal: No, Listless Behavior: No Other History: This is a 24-[facility] of distress presents with dry nonproductive cough and sore throat x3 days. Patient denies any chest pain, shortness of breathe, fever, chills, nausea, vomiting, headache, stiff neck, abdominal pain, numbness or tingling. Patient denies any recent travels, long car rides, or recent hospital stays. Denies any allergies or significant PMH. - Home Meds and Allergies Home Medications: Previous Rx's Medication Instructions Recorded Last Taken Type Acetaminophen/Codeine [Tylenol 1 tab PO Q6H PRN #14 tab 07/03/18 Unknown Rx /Codeine # 3 tab] Clindamycin [Clindamycin CAP] 300 mg PO Q8H 10 Days #30 cap 07/03/18 Unknown Rx Ibuprofen [Motrin] 600 mg PO Q8H PRN #15 tablet 07/03/18 Unknown Rx Acetaminophen/Codeine [Tylenol 1 tab PO Q6H PRN #12 tab 07/22/18 Unknown Rx /Codeine # 3 tab] Chlorhexidine Mouthwash [Peridex] 15 ml MM BID #1 bottle 07/22/18 Unknown Rx Clindamycin [Clindamycin CAP] 300 mg PO Q8H #21 cap 07/22/18 Unknown Rx Ibuprofen [Motrin] 600 mg PO Q8H PRN #20 tablet 07/22/18 Unknown Rx Amoxicillin 500 mg PO QID #40 capsule 10/15/18 Unknown Rx Chlorhexidine Mouthwash [Peridex] 15 ml MM BID #473 bottle 10/15/18 Unknown Rx Ketorolac [Toradol] 10 mg PO Q6H PRN #15 tablet 10/15/18 Unknown Rx Lidocaine Viscous 2% 5 ml MM Q3H PRN #120 udc 10/15/18 Unknown Rx Amoxicillin 500 mg PO BID #14 capsule 01/19/19 Unknown Rx HYDROcodone/APAP 5-325 [[place] 1 - 2 each PO Q6HR PRN #14 tablet 01/19/19 Unknown Rx 5/325] Ibuprofen [Motrin 800 MG tab] 800 mg PO Q8HR PRN #20 tablet 01/19/19 Unknown Rx Amoxicillin [Trimox CAP] 500 mg PO TID #30 capsule 06/18/19 Unknown Rx Ibuprofen [Motrin] 800 mg PO Q8HR PRN #30 tablet 06/18/19 Unknown Rx medroxyPROGESTERone ACETATE 10 mg PO QDAY #10 tablet 10/29/19 Unknown Rx [Provera] Azithromycin [Zithromax Z-ELIZABETH] 250 mg PO DAILY #6 tablet 11/11/19 Unknown Rx Ibuprofen [Motrin] 600 mg PO Q8H PRN #20 tablet 11/11/19 Unknown Rx Allergies/Adverse Reactions: Allergies Allergy/AdvReac Type Severity Reaction Status Date / Time antidiarrhea Allergy Vomiting Uncoded 01/19/19 09:57 ED Review of Systems ROS: Stated complaint: SOB,SORETHROAT Other details as noted in HPI Constitutional: denies: chills, fever Eyes: denies: eye pain, eye discharge, vision change ENT: throat pain, congestion. denies: ear pain Respiratory: cough. denies: shortness of breath, wheezing Cardiovascular: denies: chest pain, palpitations Endocrine: no symptoms reported Gastrointestinal: denies: abdominal pain, nausea, diarrhea Genitourinary: denies: urgency, dysuria, discharge Musculoskeletal: denies: back pain, joint swelling, arthralgia Skin: denies: rash, lesions Neurological: denies: headache, weakness, paresthesias Psychiatric: denies: anxiety, depression Hematological/Lymphatic: denies: easy bleeding, easy bruising ED Past Medical Hx - Past Medical History Previous Medical History?: No Additional medical history: endometerosis - Surgical History Past Surgical History?: No - Social History Smoking Status: Current Every Day Smoker Substance Use Type: None - Medications Home Medications: Home Medications Medication Instructions Recorded Confirmed Last Taken Type Acetaminophen/Codeine [Tylenol 1 tab PO Q6H PRN #14 tab 07/03/18 Unknown Rx /Codeine # 3 tab] Clindamycin [Clindamycin CAP] 300 mg PO Q8H 10 Days #30 cap 07/03/18 Unknown Rx Ibuprofen [Motrin] 600 mg PO Q8H PRN #15 tablet 07/03/18 Unknown Rx Acetaminophen/Codeine [Tylenol 1 tab PO Q6H PRN #12 tab 07/22/18 Unknown Rx /Codeine # 3 tab] Chlorhexidine Mouthwash [Peridex] 15 ml MM BID #1 bottle 07/22/18 Unknown Rx Clindamycin [Clindamycin CAP] 300 mg PO Q8H #21 cap 07/22/18 Unknown Rx Ibuprofen [Motrin] 600 mg PO Q8H PRN #20 tablet 07/22/18 Unknown Rx Amoxicillin 500 mg PO QID #40 capsule 10/15/18 Unknown Rx Chlorhexidine Mouthwash [Peridex] 15 ml MM BID #473 bottle 10/15/18 Unknown Rx Ketorolac [Toradol] 10 mg PO Q6H PRN #15 tablet 10/15/18 Unknown Rx Lidocaine Viscous 2% 5 ml MM Q3H PRN #120 udc 10/15/18 Unknown Rx Amoxicillin 500 mg PO BID #14 capsule 01/19/19 Unknown Rx HYDROcodone/APAP 5-325 [[place] 1 - 2 each PO Q6HR PRN #14 tablet 01/19/19 Unknown Rx 5/325] Ibuprofen [Motrin 800 MG tab] 800 mg PO Q8HR PRN #20 tablet 01/19/19 Unknown Rx Amoxicillin [Trimox CAP] 500 mg PO TID #30 capsule 06/18/19 Unknown Rx Ibuprofen [Motrin] 800 mg PO Q8HR PRN #30 tablet 06/18/19 Unknown Rx medroxyPROGESTERone ACETATE 10 mg PO QDAY #10 tablet 10/29/19 Unknown Rx [Provera] Azithromycin [Zithromax Z-ELIZABETH] 250 mg PO DAILY #6 tablet 11/11/19 Unknown Rx Ibuprofen [Motrin] 600 mg PO Q8H PRN #20 tablet 11/11/19 Unknown Rx ED Bronchiolitis Physical Exam - Exam General: Vital signs noted. No distress. Alert and acting appropriately. Neurologic: Alert and oriented, no deficits. Musculoskeletal: Unremarkable. ED Physical Exam - General Limitations: No Limitations General appearance: alert, in no apparent distress - Head Head exam: Present: atraumatic, normocephalic - Eye Eye exam: Present: normal appearance - Expanded ENT Exam Expanded Ear exam: Present: normal external inspection Mouth exam: Present: normal external inspection, tongue normal. Absent: drooling, trismus, muffled voice Teeth exam: Present: normal inspection Throat exam: Positive: tonsillar erythema, other (uvula midline). Negative: tonsillomegaly, tonsillar exudate, R peritonsillar mass, L peritonsillar mass - Neck Neck exam: Present: normal inspection, full ROM. Absent: tenderness, meningismus, lymphadenopathy - Respiratory Respiratory exam: Present: normal lung sounds bilaterally. Absent: respiratory distress, wheezes, rales, rhonchi, stridor, chest wall tenderness, accessory muscle use, decreased breath sounds, prolonged expiratory - Cardiovascular Cardiovascular Exam: Present: regular rate, normal rhythm, normal heart sounds. Absent: irregular rhythm, systolic murmur, diastolic murmur, rubs, gallop - Extremities Exam Extremities exam: Present: normal inspection, full ROM - Back Exam Back exam: Present: normal inspection, full ROM - Neurological Exam Neurological exam: Present: alert, oriented X3, normal gait - Psychiatric Psychiatric exam: Present: normal affect, normal mood - Skin Skin exam: Present: warm, dry, intact, normal color. Absent: rash ED Course Vital Signs 11/11/19 13:10 Temperature 98.9 F Pulse Rate 97 H Respiratory 18 Rate Blood Pressure 94/62 O2 Sat by Pulse 100 Oximetry - Reevaluation(s) Reevaluation #1: 11/11/19 14:24 Patient is speaking in full sentences with no signs of distress noted. ED Medical Decision Making - Medical Decision Making 24-year-old female that presents with pharygnitis and bronchitis like symptoms. Patient is stable and was examined by me. Will treat empirecally with Zpack due to continuing and worsening of symptoms. Vital signs are stable. Patient was instructed to Follow-up with a primary care doctor in 3-5 days or if symptoms worsen and continue return to emergency room as soon as possible. At time of discharge, the patient does not seem toxic or ill in appearance. No acute signs of distress noted. Patient agrees to discharge treatment plan of care. No further questions noted by the patient. Critical care attestation.: If time is entered above; I have spent that time in minutes in the direct care of this critically ill patient, excluding procedure time. ED Disposition Clinical Impression: Bronchitis Pharyngitis Qualifiers: Pharyngitis/tonsillitis etiology: unspecified etiology Qualified Code(s): J02.9 - Acute pharyngitis, unspecified Disposition: DC-01 TO HOME OR SELFCARE Is pt being admited?: No Does the pt Need Aspirin: No Condition: Stable Instructions: Acute Bronchitis (ED) Additional Instructions: Follow-up with a primary care doctor in 3-5 days or if symptoms worsen and continue return to emergency room as soon as possible. Prescriptions: Ibuprofen [Motrin] 600 mg PO Q8H PRN #20 tablet PRN Reason: Pain Azithromycin [Zithromax Z-ELIZABETH] 250 mg PO DAILY #6 tablet Referrals: [facility] [Referring] - 3-5 Days NIKITA POLO MD [Staff Physician] - 3-5 Days [facility] [Outside] - 3-5 Days Forms: Work/School Release Form(ED)
== END 2019-11-11 14:50 | disposition home or self-care (01) ==
LOC: ED 12:55
DX: J40 Bronchitis, not specified as acute or chronic (principal); F17.200 Nicotine dependence, unspecified, uncomplicated
CPT/HCPCS: 99282

== ENCOUNTER 2020-09-14 10:59 | Emergency (ER) | payer SELFPAY ==
[2020-09-14 11:21] VITALS: BP 137/96
--- NOTE | 2020-09-14 11:59 | Event Note ---
ED Screening Note ED Screening Note: took to tests over the counter which was positive suprapubic pain described as cramping that began earlier today +states she is having light vaginal spotting no fever no n/v no dysuria LNMP: 08/17/2020 PMHx endometriosis adverse reaction: zofran This initial assessment/diagnostic orders/clinical plan/treatment(s) is/are subject to change based on patients health status, clinical progression and re- assessment by fellow clinical providers in the ED. Further treatment and workup at subsequent clinical providers discretion. Patient/guardian urged not to elope from the ED as their condition may be serious if not clinically assessed and managed. Initial orders include: labs, UA
--- NOTE | 2020-09-14 12:46 | Emergency Department Report ---
ED General Adult HPI - General Chief complaint: Medical Clearance Stated complaint: POSS /ABD PAIN Time Seen by Provider: 09/14/20 11:57 Source: patient Mode of arrival: Ambulatory Limitations: No Limitations - History of Present Illness Initial comments: 25-year-old female presenting with chief complaint of vaginal spotting, lower abdominal cramping. She states that she believes that she is because she had a positive test at home after missing her last period. Last menstrual period was August 14. She denies vomiting, fevers or any other symptoms. Onset was gradual, mild severity, no modifying factors. - Related Data Previous Rx's Medication Instructions Recorded Last Taken Type Acetaminophen/Codeine [Tylenol 1 tab PO Q6H PRN #14 tab 07/03/18 Unknown Rx /Codeine # 3 tab] Clindamycin [Clindamycin CAP] 300 mg PO Q8H 10 Days #30 cap 07/03/18 Unknown Rx Ibuprofen [Motrin] 600 mg PO Q8H PRN #15 tablet 07/03/18 Unknown Rx Acetaminophen/Codeine [Tylenol 1 tab PO Q6H PRN #12 tab 07/22/18 Unknown Rx /Codeine # 3 tab] Chlorhexidine Mouthwash [Peridex] 15 ml MM BID #1 bottle 07/22/18 Unknown Rx Clindamycin [Clindamycin CAP] 300 mg PO Q8H #21 cap 07/22/18 Unknown Rx Ibuprofen [Motrin] 600 mg PO Q8H PRN #20 tablet 07/22/18 Unknown Rx Amoxicillin 500 mg PO QID #40 capsule 10/15/18 Unknown Rx Chlorhexidine Mouthwash [Peridex] 15 ml MM BID #473 bottle 10/15/18 Unknown Rx Ketorolac [Toradol] 10 mg PO Q6H PRN #15 tablet 10/15/18 Unknown Rx Lidocaine Viscous 2% 5 ml MM Q3H PRN #120 udc 10/15/18 Unknown Rx Amoxicillin 500 mg PO BID #14 capsule 01/19/19 Unknown Rx HYDROcodone/APAP 5-325 [Imogene 1 - 2 each PO Q6HR PRN #14 tablet 01/19/19 Unknown Rx 5/325] Ibuprofen [Motrin 800 MG tab] 800 mg PO Q8HR PRN #20 tablet 01/19/19 Unknown Rx Amoxicillin [Trimox CAP] 500 mg PO TID #30 capsule 06/18/19 Unknown Rx Ibuprofen [Motrin] 800 mg PO Q8HR PRN #30 tablet 06/18/19 Unknown Rx medroxyPROGESTERone ACETATE 10 mg PO QDAY #10 tablet 10/29/19 Unknown Rx [Provera] Azithromycin [Zithromax Z-ELIZABETH] 250 mg PO DAILY #6 tablet 11/11/19 Unknown Rx Ibuprofen [Motrin] 600 mg PO Q8H PRN #20 tablet 11/11/19 Unknown Rx Amoxicillin [Amoxicillin TAB] 875 mg PO BID #20 tablet 05/12/20 Unknown Rx Chlorhexidine Mouthwash [Peridex] 15 ml MM BID #1 bottle 05/12/20 Unknown Rx Lidocaine Viscous 2% 5 ml MM Q3H PRN #120 udc 05/12/20 Unknown Rx Allergies Allergy/AdvReac Type Severity Reaction Status Date / Time No Known Allergies Allergy Unverified 05/12/20 05:23 ED Review of Systems ROS: Stated complaint: POSS /ABD PAIN Other details as noted in HPI Comment: All other systems reviewed and negative Genitourinary: as per HPI ED Past Medical Hx - Past Medical History Previous Medical History?: Yes Additional medical history: endometerosis - Surgical History Past Surgical History?: No - Social History Smoking Status: Never Smoker Substance Use Type: None - Medications Home Medications: Home Medications Medication Instructions Recorded Confirmed Last Taken Type Acetaminophen/Codeine [Tylenol 1 tab PO Q6H PRN #14 tab 07/03/18 Unknown Rx /Codeine # 3 tab] Clindamycin [Clindamycin CAP] 300 mg PO Q8H 10 Days #30 cap 07/03/18 Unknown Rx Ibuprofen [Motrin] 600 mg PO Q8H PRN #15 tablet 07/03/18 Unknown Rx Acetaminophen/Codeine [Tylenol 1 tab PO Q6H PRN #12 tab 07/22/18 Unknown Rx /Codeine # 3 tab] Chlorhexidine Mouthwash [Peridex] 15 ml MM BID #1 bottle 07/22/18 Unknown Rx Clindamycin [Clindamycin CAP] 300 mg PO Q8H #21 cap 07/22/18 Unknown Rx Ibuprofen [Motrin] 600 mg PO Q8H PRN #20 tablet 07/22/18 Unknown Rx Amoxicillin 500 mg PO QID #40 capsule 10/15/18 Unknown Rx Chlorhexidine Mouthwash [Peridex] 15 ml MM BID #473 bottle 10/15/18 Unknown Rx Ketorolac [Toradol] 10 mg PO Q6H PRN #15 tablet 10/15/18 Unknown Rx Lidocaine Viscous 2% 5 ml MM Q3H PRN #120 udc 10/15/18 Unknown Rx Amoxicillin 500 mg PO BID #14 capsule 01/19/19 Unknown Rx HYDROcodone/APAP 5-325 [Imogene 1 - 2 each PO Q6HR PRN #14 tablet 01/19/19 Unknown Rx 5/325] Ibuprofen [Motrin 800 MG tab] 800 mg PO Q8HR PRN #20 tablet 01/19/19 Unknown Rx Amoxicillin [Trimox CAP] 500 mg PO TID #30 capsule 06/18/19 Unknown Rx Ibuprofen [Motrin] 800 mg PO Q8HR PRN #30 tablet 06/18/19 Unknown Rx medroxyPROGESTERone ACETATE 10 mg PO QDAY #10 tablet 10/29/19 Unknown Rx [Provera] Azithromycin [Zithromax Z-ELIZABETH] 250 mg PO DAILY #6 tablet 11/11/19 Unknown Rx Ibuprofen [Motrin] 600 mg PO Q8H PRN #20 tablet 11/11/19 Unknown Rx Amoxicillin [Amoxicillin TAB] 875 mg PO BID #20 tablet 05/12/20 Unknown Rx Chlorhexidine Mouthwash [Peridex] 15 ml MM BID #1 bottle 05/12/20 Unknown Rx Lidocaine Viscous 2% 5 ml MM Q3H PRN #120 udc 05/12/20 Unknown Rx ED Physical Exam - General Limitations: No Limitations General appearance: alert, in no apparent distress - Head Head exam: Present: atraumatic, normocephalic - Eye Eye exam: Present: normal appearance - ENT ENT exam: Present: mucous membranes moist - Neck Neck exam: Present: normal inspection - Respiratory Respiratory exam: Present: normal lung sounds bilaterally. Absent: respiratory distress - Cardiovascular Cardiovascular Exam: Present: regular rate, normal rhythm. Absent: systolic murmur, diastolic murmur, rubs, gallop - GI/Abdominal GI/Abdominal exam: Present: soft, normal bowel sounds. Absent: distended, tenderness - Extremities Exam Extremities exam: Present: normal inspection - Back Exam Back exam: Present: normal inspection - Neurological Exam Neurological exam: Present: alert, oriented X3 - Psychiatric Psychiatric exam: Present: normal affect, normal mood - Skin Skin exam: Present: warm, dry, intact, normal color. Absent: rash ED Course Vital Signs 09/14/20 11:19 Temperature 98.5 F Pulse Rate 89 Respiratory 16 Rate Blood Pressure 137/96 O2 Sat by Pulse 99 Oximetry ED Medical Decision Making - Lab Data Result diagrams: 09/14/20 12:14 09/14/20 12:14 - Radiology Data Radiology results: report reviewed Negative pelvic ultrasound - Medical Decision Making Patient presenting with vaginal spotting and abdominal cramping after missing her last cycle, last menstrual period 08/14/2020. Examination is normal with no abdominal tenderness. Differential diagnoses includes , rule out ectopic, false positive test, regular menses. Labs pending. hCG slightly elevated at 16, ultrasound negative, low suspicion for ectopic given LMP and hCG however have advised that this must be trended to rule out. Advised on 2-day follow-up with [facility] DIRECTOR. - Differential Diagnosis Ectopic, , regular menses Critical care attestation.: If time is entered above; I have spent that time in minutes in the direct care of this critically ill patient, excluding procedure time. ED Disposition Clinical Impression: Vaginal bleeding affecting early Disposition: DC-01 TO HOME OR SELFCARE Is pt being admited?: No Condition: Good Instructions: Vaginal Bleeding During , First Trimester Referrals: PRIMARY CARE, [Primary Care Provider] - 3-5 Days WILBER SLAUGHTER MD [Staff Physician] - 2-3 Days Time of Disposition: 15:08
[2020-09-14 13:01] LABS: Basophils % (Auto) 0.4 % (0.0-1.8); Eosinophils # (Auto) 0.1 K/mm3 (0.0-0.4); Eosinophils % (Auto) 0.9 % (0.0-4.3); Hematocrit 37.3 % (30.3-42.9); Hemoglobin 12.7 gm/dl (10.1-14.3); Lymphocytes % (Auto) 29.8 % (13.4-35.0); Mean Corpuscular HGB Conc 34 % (30-34); Mean Corpuscular Volume 95 fl (79-97); Monocytes # (Auto) 0.5 K/mm3 (0.0-0.8); Monocytes % (Auto) 6.9 % (0.0-7.3); Platelet Count 270 K/mm3 (140-440); Red Blood Count 3.92 M/mm3 (3.65-5.03); Red Cell Distribution Width 13.8 % (13.2-15.2)
[2020-09-14 13:08] LABS: Bilirubin,Urine NEG (Negative); Blood,Urine LG (Negative); Color,Urine Yellow (Yellow); Mucus,Urine 1+ /HPF; Urobilinogen,Urine < 2.0 mg/dL (<2.0)
[2020-09-14 13:09] LABS: RBC,Urine > 182.0 /HPF (0.0-6.0)
[2020-09-14 13:13] LABS: Alanine Aminotransferase 12 units/L (7-56); Albumin 4.3 g/dL (3.9-5); Blood Urea Nitrogen 9 mg/dL (7-17); Calcium 10.1 mg/dL (8.4-10.2); Hemolysis Index 5
[2020-09-14] MEDS ORDERED: ACETAMINOPHEN 325 MG TAB PO ONE (13:14)
[2020-09-14 13:25] LABS: BUN/Creatinine Ratio 13
--- NOTE | 2020-09-14 14:31 | Ultrasound Report ---
US OB <= 14 weeks fetus, US OB transvaginal INDICATION / CLINICAL INFORMATION: bleeding. TECHNIQUE: Transabdominal. COMPARISON: None available. FINDINGS: UTERUS: No gestational sac is visualized. There is a heterogeneous 3.8 cm uterine lesion. Endometrial stripe is normal measuring 7 mm. ADNEXA: Right ovary is not visualized. Left ovary appears normal. FREE FLUID: None. ADDITIONAL FINDINGS: None. IMPRESSION: No intrauterine gestational sac is visualized. Correlate with beta-hCG and repeat sonogra ms as clinically indicated. Signer Name: Mike Skinner MD Signed: 09/14/2020 2:26 PM Workstation Name: [id number]
== END 2020-09-14 15:17 | disposition home or self-care (01) ==
LOC: ED 10:59
DX: O20.9 Hemorrhage in early pregnancy, unspecified (principal); Z3A.01 Less than 8 weeks gestation of pregnancy; Z79.899 Other long term (current) drug therapy
CPT/HCPCS: 36415; 76801; 76817; 80053; 81001; 84702; 85025; 86900; 86901

== ENCOUNTER 2021-08-03 21:10 | Emergency (ER) | payer OTHER ==
[2021-08-04] MEDS ORDERED: LIDOCAINE-MPF (1%) 10 MG/1 ML VIAL 5 ML INFILTRATI ONE (01:41)
[2021-08-04] MEDS ORDERED: IBUPROFEN 600 MG TAB PO ONE (01:41)
[2021-08-04] MEDS ORDERED: TETANUS,DIPH,PERTUSS(ACELL) VACCINE 0.5 ML SYRINGE IM ONE (01:41)
[2021-08-04] MEDS ORDERED: ONDANSETRON 4 MG ODT TAB PO ONE (01:41)
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
[2021-08-04 03:48] VITALS: BP 113/75
== END 2021-08-04 03:59 | disposition home or self-care (01) ==
LOC: ED 21:10
DX: S01.511A Laceration without foreign body of lip, initial encounter (principal); V89.2XXA Person injured in unspecified motor-vehicle accident, traffic, initial encounter; Y93.89 Activity, other specified; Y92.410 Unspecified street and highway as the place of occurrence of the external cause; Y99.8 Other external cause status
CPT/HCPCS: 90471; 90715; 96372; 99282; Q0162

== ENCOUNTER 2021-08-13 10:49 | Emergency (ER) | payer OTHER ==
[2021-08-13 10:57] VITALS: BP 121/83
--- NOTE | 2021-08-13 11:18 | Emergency Department Report ---
Suture/Staple Removal - HPI Chief Complaint: Laceration/Recheck/Suture Stated Complaint: suture rem Time Seen by Provider: 08/13/21 11:09 When Sutures or [place] Placed: 8-10 Days Ago Wound Location: left upper lip ED Review of Systems ROS: Stated complaint: suture rem Other details as noted in HPI Comment: All other systems reviewed and negative ED Past Medical Hx - Past Medical History Previous Medical History?: Yes Additional medical history: endometerosis - Surgical History Past Surgical History?: Yes - Social History Smoking Status: Never Smoker Substance Use Type: None - Medications Home Medications: Home Medications Medication Instructions Recorded Confirmed Last Taken Type Acetaminophen/Codeine [Tylenol 1 tab PO Q6H PRN #14 tab 07/03/18 Unknown Rx /Codeine # 3 tab] Clindamycin [Clindamycin CAP] 300 mg PO Q8H 10 Days #30 cap 07/03/18 Unknown Rx Ibuprofen [Motrin] 600 mg PO Q8H PRN #15 tablet 07/03/18 Unknown Rx Acetaminophen/Codeine [Tylenol 1 tab PO Q6H PRN #12 tab 07/22/18 Unknown Rx /Codeine # 3 tab] Chlorhexidine Mouthwash [Peridex] 15 ml MM BID #1 bottle 07/22/18 Unknown Rx Clindamycin [Clindamycin CAP] 300 mg PO Q8H #21 cap 07/22/18 Unknown Rx Ibuprofen [Motrin] 600 mg PO Q8H PRN #20 tablet 07/22/18 Unknown Rx Amoxicillin 500 mg PO QID #40 capsule 10/15/18 Unknown Rx Chlorhexidine Mouthwash [Peridex] 15 ml MM BID #473 bottle 10/15/18 Unknown Rx Ketorolac [Toradol] 10 mg PO Q6H PRN #15 tablet 10/15/18 Unknown Rx Lidocaine Viscous 2% 5 ml MM Q3H PRN #120 udc 10/15/18 Unknown Rx Amoxicillin 500 mg PO BID #14 capsule 01/19/19 Unknown Rx HYDROcodone/APAP 5-325 [[place] 1 - 2 each PO Q6HR PRN #14 tablet 01/19/19 Unknown Rx 5/325] Ibuprofen [Motrin 800 MG tab] 800 mg PO Q8HR PRN #20 tablet 01/19/19 Unknown Rx Amoxicillin [Trimox CAP] 500 mg PO TID #30 capsule 06/18/19 Unknown Rx Ibuprofen [Motrin] 800 mg PO Q8HR PRN #30 tablet 06/18/19 Unknown Rx medroxyPROGESTERone ACETATE 10 mg PO QDAY #10 tablet 10/29/19 Unknown Rx [Provera] Azithromycin [Zithromax Z-ELIZABETH] 250 mg PO DAILY #6 tablet 11/11/19 Unknown Rx Ibuprofen [Motrin] 600 mg PO Q8H PRN #20 tablet 11/11/19 Unknown Rx Amoxicillin [Amoxicillin TAB] 875 mg PO BID #20 tablet 05/12/20 Unknown Rx Chlorhexidine Mouthwash [Peridex] 15 ml MM BID #1 bottle 05/12/20 Unknown Rx Lidocaine Viscous 2% 5 ml MM Q3H PRN #120 udc 05/12/20 Unknown Rx Promethazine [Phenergan] 25 mg PO Q6HR PRN #12 tab 09/14/20 Unknown Rx Baclofen [Lioresal] 10 mg PO TID PRN #15 tab 08/04/21 Unknown Rx Ibuprofen [Motrin] 600 mg PO Q8H PRN #30 tablet 08/04/21 Unknown Rx cephALEXin [Keflex] 500 mg PO Q8HR #21 cap 08/04/21 Unknown Rx Suture Removal Exam - Exam General: Vital signs noted. No distress. Alert and acting appropriately. Wound: No Pathologic Erythema, No Tenderness, No Drainage, No Pus, No Wound Dehiscence Other Systems: All other systems reviewed and are unremarkable. ED Course Vital Signs 08/13/21 10:52 Temperature 97.9 F Pulse Rate 84 Respiratory 16 Rate Blood Pressure 121/83 O2 Sat by Pulse 100 Oximetry ED Recheck MDM - Differential Diagnosis Suture/Staple Removal - Medical Decision Making Sutures removed with no issue. Patient to take Mederma for the next several months Critical care attestation.: If time is entered above; I have spent that time in minutes in the direct care of this critically ill patient, excluding procedure time. ED Disposition Clinical Impression: Laceration without foreign body of lip, initial encounter, Encounter for removal of sutures Disposition: 01 HOME / SELF CARE / HOMELESS Is pt being admited?: No Does the pt Need Aspirin: No Condition: Stable Instructions: Incision Care, Adult, [id number] Additional Instructions: Please use [id number] Mederma for the next several months to help with scarring. Time of Disposition: 11:18
== END 2021-08-13 11:32 | disposition home or self-care (01) ==
LOC: ED 10:49
DX: S01.511D Laceration without foreign body of lip, subsequent encounter (principal); X58.XXXD Exposure to other specified factors, subsequent encounter
CPT/HCPCS: 99282